=== PATIENT | male | born 1945 | race Caucasian/White ===

== ENCOUNTER 2018-11-16 17:48 | Emergency (ER) | payer MEDICARE, BC ==
[2018-11-16] MEDS ORDERED: SODIUM CHLORIDE 0.9% FLUSH 10 ML SOL IV PRN (17:58)
[2018-11-16] MEDS ORDERED: NITROGLYCERIN 0.4 MG TAB SL PRN (17:58)
[2018-11-16 18:02] LABS: BASOPHILS % (AUTO) 0 % (0-3); EOSINOPHILS % (AUTO) 0 % (0-9); HEMATOCRIT 45 % (39-53); LYMPHOCYTES % (AUTO) 23.9 % (10-50); MEAN CORPUSCULAR HGB CONC 33.4 gm/dl (32.0-36.0); MEAN CORPUSCULAR VOLUME 84 fL (80-100); MONOCYTES % (AUTO) 6.7 % (0-12); NEUTROPHILS % (AUTO) 69.2 % (37-80)
[2018-11-16 18:12] VITALS: TEMP 96.4
[2018-11-16 18:15] LABS: INR 1.08 (0.86-1.12)
[2018-11-16 18:24] LABS: BLOOD UREA NITROGEN 21 mg/dl (7-18); CALCIUM 8.9 mg/dl (8.5-10.1); CHLORIDE 104 mMol/L (98-107); CREATINE KINASE 71 U/L (39-308); CREATININE 1.34 mg/dl (0.80-1.30); GLUCOSE 153 mg/dl (74-106); POTASSIUM 4.1 mMol/L (3.5-5.1); SODIUM 140 mMol/L (136-145); TROP I < 0.017 ng/ml (0.000-0.056)
[2018-11-16 21:03] VITALS: BP 178/89; PULSE 75; RESP 10; O2SAT 100
== END 2018-11-16 21:15 | disposition short-term general hospital (02) | DRG 313 ==
LOC: ED 17:48
DX: R07.9 Chest pain, unspecified (principal); I45.2 Bifascicular block; J98.11 Atelectasis; I48.0 Paroxysmal atrial fibrillation; I45.10 Unspecified right bundle-branch block; I44.4 Left anterior fascicular block
CPT/HCPCS: 71045; 80048; 82550; 84484; 85025; 85610; 85730; 93005; 99284; 99285